=== PATIENT | male | born 1960 | race Caucasian/White ===

== ENCOUNTER 2024-11-04 00:51 | Inpatient (IN) | payer OTHER, MEDICARE ==
[~2024-11-04] VITALS: Ht 165.1 cm; Wt 97.1 kg
[2024-11-04] VITALS (12 sets, daily range): BP systolic 94–148; BP diastolic 58–75; PULSE 64–101; RESP 12–19; TEMP 97–99.2; O2SAT 91–99
[2024-11-04] MEDS ORDERED: heparin 25,000 UNIT/250ml bag 250 ML IV PRN (01:10)
[2024-11-04] MEDS ORDERED: heparin 10,000 units/1 ML INJ IV PRN (01:10)
[2024-11-04 01:30] LABS: BASOPHILS % (AUTO) 0.2 % (0-1); EOSINOPHILS % (AUTO) 0 % (0-6); HEMATOCRIT 40.4 % (42.0-52.0); HEMOGLOBIN 13.4 g/dl (14.0-17.9); LYMPHOCYTES # (AUTO) 1.4 X10'3 (1.1-4.8); LYMPHOCYTES % (AUTO) 7.3 % (21-51); MEAN CORPUSCULAR HEMOGLOBIN 29.9 PG (27.0-31.0); MEAN CORPUSCULAR HGB CONC 33.3 g/dL (33.0-36.5); MEAN CORPUSCULAR VOLUME 89.8 FL (78-98); MEAN PLATELET VOLUME 8.3 FL (7.4-10.4); MONOCYTES # (AUTO) 1.2 X10'3 (0-0.9); MONOCYTES % (AUTO) 6.4 % (2-12); NEUTROPHILS # (AUTO) 16.5 X10'3 (1.8-7.7); NEUTROPHILS % (AUTO) 86.1 % (42-75); PLATELET COUNT 223 X10'3 (140-440); RED BLOOD COUNT 4.49 X10'6 (4.70-6.10); RED CELL DISTRIBUTION WIDTH 14.6 % (11.5-14.5); WHITE BLOOD COUNT 19.2 X10'3 (4.5-11.0)
[2024-11-04 01:44] LABS: APTT 66 SECONDS (22-32); INR 1.1 INR; PROTHROMBIN TIME 11.4 SECONDS (9.0-12.0)
[2024-11-04 01:47] LABS: ALANINE AMINOTRANSFERASE 22 U/L (12-78); ALBUMIN 3.9 G/DL (3.4-5.0); ALBUMIN/GLOBULIN RATIO 1.4 (1.1-1.5); ALKALINE PHOSPHATASE 71 IU/L (46-116); ANION GAP 15 (8-16); ASPARTATE AMINO TRANSFERASE 25 U/L (10-37); BILIRUBIN,TOTAL 0.7 MG/DL (0.1-1.0); BLOOD UREA NITROGEN 21 MG/DL (7-18); BUN/CREATININE RATIO 16.2 (10.0-20.0); CALCIUM 8.7 MG/DL (8.5-10.1); CHLORIDE 106 MMOL/L (99-107); GLUCOSE 119 MG/DL (70-104); POTASSIUM 4.3 MMOL/L (3.5-5.1); SODIUM 142 MMOL/L (135-145); TOTAL CARBON DIOXIDE 20.7 MMOL/L (24-32); TOTAL PROTEIN 6.7 G/DL (6.4-8.2); eCRCL 49 ML/MIN; eGFR 55 ML/MIN
[2024-11-04 01:53] LABS: PRO BRAIN NATRIURETIC PEPTIDE 1644 PG/ML (0-125)
[2024-11-04] MEDS ORDERED: magnesium hydroxide 30ml (MOM) UD suspension PO PRN (02:25)
[2024-11-04] MEDS ORDERED: magnesium sulf-water 4G/100mL 100 ML IV PRN (02:25)
[2024-11-04] MEDS: normal saline 1000ml 1,000 ML IV SCH (02:25)
[2024-11-04] MEDS ORDERED: morphine 2 MG/ML inj. syringe IV PRN ×2 (02:25)
[2024-11-04] MEDS ORDERED: magnesium sulf-water 2g/50mL 50 ML IV PRN (02:25)
[2024-11-04] MEDS ORDERED: mag hydrox/Alum hydrox/simeth 30ml oral suspension PO PRN (02:25)
[2024-11-04] MEDS ORDERED: acetaminophen 325mg tablet PO PRN (02:25)
[2024-11-04] MEDS ORDERED: potassium Cl 20 mEq SR tablet PO PRN ×2 (02:25)
[2024-11-04] MEDS ORDERED: potassium Cl 40MEQ/1/2NS 520ml 520 ML IV PRN (02:25)
[2024-11-04] MEDS ORDERED: ondansetron/PF 4mg/2ml inj IV PRN (02:25)
[2024-11-04] MEDS ORDERED: magnesium Cl slow-release 64mg tablet PO PRN (02:25)
[2024-11-04] MEDS: HEPARIN DRIP-CARDIAC**PHARMACIST-TO-DOSE IV ONE ×2 (02:45→03:23)
[2024-11-04] MEDS: heparin 25,000 UNIT/250ml bag 250 ML IV PRN (03:20)
[2024-11-04] MEDS ORDERED: metoprolol tartrate 1mg/ml inj IV PRN (03:35)
[2024-11-04] MEDS ORDERED: nitroGLYCERIN 0.4mg SUBLingual tab SL PRN (03:35)
[2024-11-04] MEDS ORDERED: aminophylline 250mg/10ml inj. IV PRN (03:35)
[2024-11-04 03:40] LABS: POTASSIUM 4.2 MMOL/L (3.5-5.1)
[2024-11-04] MEDS ORDERED: CLOP75TA34 PO (03:54)
[2024-11-04] MEDS ORDERED: ARIP2TAB67 (03:54)
[2024-11-04] MEDS ORDERED: METO-411 PO (03:54)
[2024-11-04] MEDS ORDERED: SERT200C PO (03:54)
[2024-11-04] MEDS ORDERED: NITR0.4T SL (03:54)
[2024-11-04] MEDS ORDERED: ATOR-429 PO (03:54)
[2024-11-04] MEDS ORDERED: MULT-381 PO (03:54)
[2024-11-04] MEDS ORDERED: GABA-535 PO (03:54)
[2024-11-04] MEDS ORDERED: EZET10TA6 PO (03:54)
[2024-11-04] MEDS ORDERED: DICL100G59 TOP (03:54)
[2024-11-04] MEDS ORDERED: FLO0.4C PO (03:54)
[2024-11-04] MEDS ORDERED: PANT40TA54 PO (03:54)
[2024-11-04] MEDS ORDERED: KEP500T PO (03:54)
[2024-11-04] MEDS ORDERED: ASPI-1265 PO (03:54)
[2024-11-04 04:04] LABS: HEMOGLOBIN A1C 6.1 % (4.5-6.2)
[2024-11-04 04:15] LABS: CHOL/HDL RATIO 2.3 (0.00-4.99); CHOLESTEROL 96 MG/DL (0-200); HDL CHOLESTEROL 42 MG/DL (35-60); LDL CHOLESTEROL 42 MG/DL (50-100); THYROID STIMULATING HORMONE 0.21 ulU/ml (0.34-4.50); TRIGLYCERIDES 61 MG/DL (20-135)
[2024-11-04 06:19] LABS: BASOPHILS % (AUTO) 0.2 % (0-1); EOSINOPHILS % (AUTO) 0 % (0-6); HEMATOCRIT 40.4 % (42.0-52.0); HEMOGLOBIN 13.1 g/dl (14.0-17.9); LYMPHOCYTES % (AUTO) 10.4 % (21-51); MEAN CORPUSCULAR HEMOGLOBIN 29.2 PG (27.0-31.0); MEAN CORPUSCULAR HGB CONC 32.3 g/dL (33.0-36.5); MEAN CORPUSCULAR VOLUME 90.5 FL (78-98); MEAN PLATELET VOLUME 8.5 FL (7.4-10.4); MONOCYTES # (AUTO) 1.6 X10'3 (0-0.9); MONOCYTES % (AUTO) 8.4 % (2-12); NEUTROPHILS # (AUTO) 15.5 X10'3 (1.8-7.7); PLATELET COUNT 220 X10'3 (140-440); RED BLOOD COUNT 4.47 X10'6 (4.70-6.10); WHITE BLOOD COUNT 19.2 X10'3 (4.5-11.0)
[2024-11-04 06:32] LABS: BILIRUBIN,URINE SMALL (Neg); CLARITY,URINE CLEAR (Clear); COLOR,URINE YELLOW (Yellow); GLUCOSE, URINE NEGATIVE (Neg); KETONES,URINE 40 mg/dl (Neg); LEUKOCYTE ESTERASE ,URINE NEGATIVE (Neg); NITRITES, URINE NEGATIVE (Neg); OCCULT BLOOD,URINE TRACE-INTACT (Neg); PROTEIN,URINE NEGATIVE (Neg); UROBILINOGEN,URINE 0.2 E.U/dL (0.2-1.0)
[2024-11-04 06:35] LABS: ALANINE AMINOTRANSFERASE 21 U/L (12-78); ALBUMIN 3.7 G/DL (3.4-5.0); ALBUMIN/GLOBULIN RATIO 1.3 (1.1-1.5); ALKALINE PHOSPHATASE 68 IU/L (46-116); ANION GAP 13 (8-16); ASPARTATE AMINO TRANSFERASE 27 U/L (10-37); BILIRUBIN,TOTAL 0.7 MG/DL (0.1-1.0); BLOOD UREA NITROGEN 20 MG/DL (7-18); CALCIUM 8.4 MG/DL (8.5-10.1); CHLORIDE 107 MMOL/L (99-107); CREATININE 1.25 MG/DL (0.60-1.10); GLUCOSE 109 MG/DL (70-104); SODIUM 141 MMOL/L (135-145); TOTAL CARBON DIOXIDE 21.4 MMOL/L (24-32); TOTAL PROTEIN 6.5 G/DL (6.4-8.2); eCRCL 51 ML/MIN; eGFR 58 ML/MIN
[2024-11-04 06:40] LABS: TOTAL PROTEIN,URINE RANDOM 29.4 MG/DL
[2024-11-04] MEDS: docusate sod 100mg capsule PO SCH (08:00)
[2024-11-04] MEDS: atorvastatin 20mg tablet PO SCH (08:00)
[2024-11-04] MEDS: K and/or MAG REPLACEMENT MC SCH (08:00)
[2024-11-04 08:09] LABS: UA COLLECTION TYPE CLN CATCH MIDSTREAM; WBC,URINE 0-4 /HPF (0-4)
[2024-11-04 08:10] LABS: BACTERIA,URINE NONE SEEN /HPF (Neg); MUCUS STRANDS NONE SEEN /LPF (Neg); SQUAMOUS EPITHELIAL CELL,UR FEW /LPF (FEW)
[2024-11-04] MEDS: furosemide 40mg/4ml inj IV ONE (08:20)
[2024-11-04] MEDS: aspirin 81mg tab.chew PO SCH (08:30)
[2024-11-04] MEDS ORDERED: aminophylline 500mg/20ml vial ONE (10:27)
[2024-11-04] MEDS: regadenoson 0.4mg/5ml syringe IV PRN (10:29)
[2024-11-04] MEDS: MESSAGE TO NURSING IV ONE (10:30)
[2024-11-04] MEDS: heparin 10,000 units/1 ML INJ IV PRN (11:49)
[2024-11-04] MEDS: levetiracetam 250mg tablet PO SCH (19:31)
[2024-11-04] MEDS: pantoprazole 40mg Tablet.DR PO SCH (19:31)
[2024-11-04] MEDS: gabapentin 400mg capsule PO SCH (20:49)
[2024-11-05 02:00] VITALS: BP 149/78; PULSE 86; RESP 16; TEMP 97; O2SAT 97
[2024-11-05 06:00] VITALS: BP 133/68; PULSE 71; RESP 12; TEMP 97.3; O2SAT 95
[2024-11-05] MEDS: multivitamins, therapeutics tablet PO SCH (07:12)
[2024-11-05] MEDS: sertraline 50mg tablet PO SCH (07:13)
[2024-11-05] MEDS: clopidogrel 75mg tablet PO SCH (07:13)
[2024-11-05] MEDS: tamsulosin 0.4mg capsule PO SCH (07:13)
[2024-11-05] MEDS: metoprolol succinate 25mg (24-HOUR) SR. Tablet PO SCH (07:14)
[2024-11-05] MEDS: nitroGLYCERIN 0.4mg SUBLingual tab SL SCH (07:14)
[2024-11-05] MEDS: ezetimibe 10mg tablet PO SCH (07:14)
[2024-11-05 08:00] VITALS: RESP 18; O2SAT 96
[2024-11-05 08:07] LABS: BASOPHILS # (AUTO) 0.1 X10'3 (0-0.2); BASOPHILS % (AUTO) 0.6 % (0-1); EOSINOPHILS % (AUTO) 0.5 % (0-6); HEMATOCRIT 40.1 % (42.0-52.0); HEMOGLOBIN 13.2 g/dl (14.0-17.9); LYMPHOCYTES # (AUTO) 1.7 X10'3 (1.1-4.8); LYMPHOCYTES % (AUTO) 18.5 % (21-51); MEAN CORPUSCULAR HEMOGLOBIN 29.8 PG (27.0-31.0); MEAN CORPUSCULAR HGB CONC 32.9 g/dL (33.0-36.5); MEAN CORPUSCULAR VOLUME 90.6 FL (78-98); MEAN PLATELET VOLUME 8.7 FL (7.4-10.4); MONOCYTES # (AUTO) 0.7 X10'3 (0-0.9); NEUTROPHILS # (AUTO) 6.7 X10'3 (1.8-7.7); NEUTROPHILS % (AUTO) 72.4 % (42-75); PLATELET COUNT 191 X10'3 (140-440); RED BLOOD COUNT 4.43 X10'6 (4.70-6.10); RED CELL DISTRIBUTION WIDTH 15.2 % (11.5-14.5); WHITE BLOOD COUNT 9.2 X10'3 (4.5-11.0)
[2024-11-05 08:21] LABS: ALANINE AMINOTRANSFERASE 23 U/L (12-78); ALBUMIN 3.3 G/DL (3.4-5.0); ALBUMIN/GLOBULIN RATIO 1.3 (1.1-1.5); ALKALINE PHOSPHATASE 61 IU/L (46-116); ANION GAP 7 (8-16); ASPARTATE AMINO TRANSFERASE 26 U/L (10-37); BILIRUBIN,TOTAL 0.6 MG/DL (0.1-1.0); BLOOD UREA NITROGEN 20 MG/DL (7-18); BUN/CREATININE RATIO 18.5 (10.0-20.0); CALCIUM 8.2 MG/DL (8.5-10.1); CHLORIDE 108 MMOL/L (99-107); CREATININE 1.08 MG/DL (0.60-1.10); GLUCOSE 142 MG/DL (70-104); MAGNESIUM 1.9 MG/DL (1.5-2.4); POTASSIUM 3.6 MMOL/L (3.5-5.1); SODIUM 140 MMOL/L (135-145); TOTAL CARBON DIOXIDE 24.6 MMOL/L (24-32); TOTAL PROTEIN 5.9 G/DL (6.4-8.2); eCRCL 59 ML/MIN; eGFR 68 ML/MIN
[2024-11-05] MEDS ORDERED: EMPA10TA PO (10:36)
[2024-11-05] MEDS ORDERED: FURO-150 PO (10:36)
[2024-11-05 11:00] VITALS: BP 128/81; PULSE 75; RESP 20; TEMP 97.8; O2SAT 95
== END 2024-11-05 12:59 | disposition home or self-care (01) | DRG 302 ==
LOC: ER 00:52 → ED HOLD 02:34 → PCU 3S 11:44
PROVIDERS: ADMIT Internal Medicine Critical Care Medicine; ATTEND Internal Medicine
PROC: 4A02XM4 Measurement of Cardiac Total Activity, External Approach (ICD-10-PCS; principal; 2024-11-04)
PROC: 3E033HZ Introduction of Radioactive Substance into Peripheral Vein, Percutaneous Approach (ICD-10-PCS; 2024-11-04)
DX: I25.110 Atherosclerotic heart disease of native coronary artery with unstable angina pectoris (principal); N17.0 Acute kidney failure with tubular necrosis; I50.30 Unspecified diastolic (congestive) heart failure; E11.9 Type 2 diabetes mellitus without complications; D72.829 Elevated white blood cell count, unspecified; I11.0 Hypertensive heart disease with heart failure; K21.9 Gastro-esophageal reflux disease without esophagitis; E78.5 Hyperlipidemia, unspecified; I25.2 Old myocardial infarction; Z79.02 Long term (current) use of antithrombotics/antiplatelets; Z79.82 Long term (current) use of aspirin; Z87.891 Personal history of nicotine dependence; Z95.5 Presence of coronary angioplasty implant and graft
CPT/HCPCS: 36415; 71045; 78452; 80053; 80061; 81001; 82570; 83036; 83735; 83880; 83935; 84132; 84145; 84156; 84300; 84443; 84484; 84540; 85025; 85610; 85730; 87081; 87207; 93005; 93017; 93306; 99291; A6258; A6449; A9500; G0378; J0280; J1644; J2785; J7030